=== PATIENT | male | born 1985 | race Two or more races ===

== ENCOUNTER → 2018-01-29 | Outpatient (CLI) | payer OTHER ==
--- NOTE | 2018-01-29 17:05 | RAD ---
CHEST PA LATERAL History: Allergic cough since September 2017. Hx asthma Comparison: PA chest August 29, 2016. Findings: The cardiomediastinal silhouette is normal. Pulmonary vasculature is normal. The lungs are clear. No pleural effusion or pneumothorax is seen. There is no acute bone abnormality. IMPRESSION: No acute cardiopulmonary process. Electronically signed by: Richard Marin MD (01/29/2018 5:02 PM) [id number]
== END | disposition home or self-care (01) ==
LOC: PMG 16:29
PROVIDERS: ATTEND Family Medicine
DX: R05 Cough (principal); J45.909 Unspecified asthma, uncomplicated
CPT/HCPCS: 71046

== ENCOUNTER → 2020-06-14 | Outpatient (CLI) | payer OTHER ==
--- NOTE | 2020-06-14 08:05 | RAD ---
XR RIBS MIN 3 VIEWS LT W/PA CHEST 06/14/2020 7:30 AM INDICATION: Left rib pain status post fall, 5 days ago COMPARISON: 01/29/2018 chest radiograph TECHNIQUE: Portable frontal view of the chest is provided. 3 dedicated views of the left ribs are pro vided. FINDINGS: The cardiomediastinal silhouette is within normal limits. Lungs are clear. There are no significant pleural effusions. There is no pulmonary vascular congestion. No pneumothora x. There is a mildly displaced left anterior seventh rib fracture. IMPRESSION: There is no acute cardiopulmonary process. There is a mildly displaced anterior left seventh rib fracture Electronically signed by: Radha Garibay MD (06/14/2020 8:03 AM) [id number]
== END ==
LOC: PMG 07:22
PROVIDERS: ATTEND Physician Assistant
DX: S22.32XA Fracture of one rib, left side, initial encounter for closed fracture (principal); X58.XXXA Exposure to other specified factors, initial encounter; Y93.89 Activity, other specified; Y92.89 Other specified places as the place of occurrence of the external cause; Y99.8 Other external cause status
CPT/HCPCS: 71101